=== PATIENT | male | born 2000 | race Caucasian/White ===

== ENCOUNTER 2023-08-16 14:45 | Emergency (ER) | payer OTHER ==
--- NOTE | 2023-08-16 15:05 | EDPHYS ---
Physician Documentation [facility] Name: Atif Miranda Age: 23 yrs Sex: Male : 2000 Arrival Date: 08/16/2023 Time: 14:45 Bed 12 Private MD: ED Physician Deidra Perez HPI: 08/16 14:52 This 23 yrs old Male presents to ER via Unassigned with complaints of Facial Injury. kb 14:52 Patient is a 23-year-old male who presents after getting hit in the face by a chair kb that fell off of a cart. Reports laceration and contusion under right eye. Denies LOC.. Historical: - Allergies: 14:54 No Known Allergies; cm10 - Home Meds: 14:54 None [Active]; cm10 - PMHx: 14:54 None; cm10 - PSHx: 14:54 None; cm10 - Immunization history:: Adult Immunizations unknown, Last tetanus immunization: unknown. - Social history:: Smoking status: Reported history of juuling and/or vaping. ROS: 14:53 Constitutional: Negative for fever, chills, and weight loss, kb 14:53 Skin: Positive for laceration(s), of the right cheek, 14:53 All other systems are negative, Exam: 14:53 Constitutional: This is a well developed, well nourished patient who is awake, alert, kb and in no acute distress. Eyes: Pupils equal round and reactive to light, extra-ocular motions intact. Lids and lashes normal. Conjunctiva and sclera are non-icteric and not injected. Cornea within normal limits. Periorbital areas with no swelling, redness, or edema. ENT: Moist Mucous membranes Respiratory: Respirations even and unlabored. No increased work of breathing. Talking in full sentences MS/ Extremity: Pulses equal, no cyanosis. Neurovascular intact. Full, normal range of motion. Neuro: Awake and alert, GCS 15, oriented to person, place, time, and situation. Moves all extremities. Normal gait. 14:53 Skin: injury, contusion(s), that are superficial, of the right cheek, laceration(s), the wound is approximately 1 cm(s), of the right cheek, that can be described as clean, no foreign body, linear, without bleeding, Vital Signs: 14:52 BP 129 / 77; Pulse 69; Resp 18; Temp 97.5; Pulse Ox 95% ; Weight 97.52 kg; Height 5 ft. cm10 4 in. ; Pain 1/10; 14:52 Body Mass Index 36.90 (97.52 kg, 162.56 cm) cm10 14:52 Pain Scale: Adult cm10 Harlan Coma Score: 14:54 Eye Response: spontaneous(4). Motor Response: obeys commands(6). Verbal Response: kb oriented(5). Total: 15. Laceration: 15:03 Wound Repair of 1cm ( 0.4in ) subcutaneous laceration to right cheek. Linear shaped.. kb Distal neuro/vascular/tendon intact. Wound prep: Extensive cleansing with hibiclenz by nurse, Wound irrigation with saline by nurse. Skin closed with thin layer Adhesive skin closure using Dermabond. Patient tolerated well. MDM: 14:50 Patient medically screened. kb 14:54 Differential diagnosis: Contusion of Hematoma on Laceration of face, Concussion without kb LOC. Data reviewed: vital signs, nurses notes. Test considered but Not performed: X-ray: X-ray facial bones considered but pain is very superficial, no bony tenderness, no entrapment of right eye. CT: CT head considered but patient has no neurodeficits, no LOC, no headache. Counseling: I had a detailed discussion with the patient and/or guardian regarding the historical points, exam findings, and any diagnostic results supporting the discharge/admit diagnosis, the need for outpatient follow up, a family practitioner, to return to the emergency department if symptoms worsen or persist or if there are any questions or concerns that arise at home. 08/16 14:52 Order name: Dermabond; Complete Time: 14:59 kb 08/16 14:52 Order name: Wound Care; Complete Time: 14:59 kb Administered Medications: 14:59 Drug: Tetanus-Diphtheria Toxoid IM Adult 0.5 ml IM once; Provide Vaccine Information mb9 Statement (VIS). {Flange Turner: [employer]; Exp: TueFeb 01 2025; Lot #: [id number]; Series: 1 of 1; Patient Consent: Obtained; Date/Time: ; Source Name: Atif Bustamante Ruben; Source Relationship: Self; Address Information: [address] [place] [address] [place] [address]; ; Education: Provided; VIS Presented Date: ; VIS Publication: Tetanus/Diphtheria (Td) Vaccine VIS 12/21/2016 (historic)} Route: IM; Site: right deltoid; Disposition Summary: 08/16/23 15:04 Discharge Ordered Notes: Location: Home kb Condition: Stable kb Diagnosis - Facial Laceration/ Laceration without foreign body of cheek and temporomandibular kb area - Contusion of right cheek kb Followup: kb - With: Emergency Department - When: As needed - Reason: Worsening of condition Followup: kb - With: Private Physician - When: 2 - 3 days - Reason: Recheck today's complaints, Continuance of care, Re-evaluation by your physician Discharge Instructions: - Discharge Summary Sheet kb - Contusion, [id number] kb - Facial Laceration, [id number] kb Forms: - Medication Reconciliation Form kb - Thank You Letter kb - Antibiotic Education kb - Prescription Opioid Use kb - Patient Portal Instructions kb - Leadership Thank You Letter kb Signatures: Shania Akbar FNP-C ABHISHEK-Patricia Lara RN RN mb9 Xiomara Muller RN RN cm10
--- NOTE | 2023-08-16 15:05 | ER ---
Nurse's Notes [facility] Name: Atif Miranda Age: 23 yrs Sex: Male : 2000 Arrival Date: 08/16/2023 Time: 14:45 Bed 12 Private MD: Diagnosis: Facial Laceration/ Laceration without foreign body of cheek and temporomandibular area;Contusion of right cheek Presentation: 08/16 14:52 Chief complaint: Patient states: was pushing a cart up a ramp and a metal chair hit his cm10 right eye. Pt noted to have small lac to right cheek. Coronavirus screen: Vaccine status: Patient reports being unvaccinated. Client denies travel out of the [place] in the last 14 days. Ebola Screen: Patient denies travel to an Ebola-affected area in the 21 days before illness onset. No symptoms or risks identified at this time. Initial Sepsis Screen: Does the patient meet any 2 criteria? No. Patient's initial sepsis screen is negative. Does the patient have a suspected source of infection? No. Patient's initial sepsis screen is negative. Risk Assessment: Do you want to hurt yourself or someone else? Patient reports no desire to harm self or others. Onset of symptoms was August 16, 2023. 14:52 Method Of Arrival: Ambulatory cm10 14:52 Acuity: FRANK 4 cm10 Historical: - Allergies: 14:54 No Known Allergies; cm10 - Home Meds: 14:54 None [Active]; cm10 - PMHx: 14:54 None; cm10 - PSHx: 14:54 None; cm10 Historical Immunization: - Administered Vaccines 14:59 Tetanus-Diphtheria Toxoid IM Adult 0.5 ml mb9 [employer]: [employer]; Exp: TueFeb 01 2025; Lot #: [id number]; Series: 1 of 1; Patient Consent: Obtained; Date/Time: ; Source Name: Atif Miranda; Source Relationship: Self; Address Information: [address] [place] [address]; ; Education: Provided; VIS Presented Date: ; VIS Publication: Tetanus/Diphtheria (Td) Vaccine VIS 12/21/2016 (historic) - Immunization history:: Adult Immunizations unknown, Last tetanus immunization: unknown. - Social history:: Smoking status: Reported history of juuling and/or vaping. Screenin:00 [facility] ED Fall Risk Assessment (Adult) History of falling in the last 3 months, mb9 including since admission No falls in past 3 months (0 pts) Confusion or Disorientation No (0 pts) Intoxicated or Sedated No (0 pts) Impaired Gait No (0 pts) Mobility Assist Device Used No (0 pt) Altered Elimination No (0 pt) Score/Fall Risk Level 0 - 2 = Low Risk Oriented to surroundings, Maintained a safe environment, Educated pt \T\ family on fall prevention, incl call for assistance when getting out of bed. Abuse screen: Denies threats or abuse. Nutritional screening: No deficits noted. Tuberculosis screening: No symptoms or risk factors identified. Assessment: 14:58 General: Appears in no apparent distress. Behavior is calm, cooperative, appropriate mb9 for age. Pain: Denies pain. Neuro: Faustin Agitation-Sedation Scale (RASS): 0 - Alert and Calm Level of Consciousness is awake, alert, obeys commands, Oriented to person, place, time, situation, Appropriate for age. Cardiovascular: Patient's skin is warm and dry. Respiratory: Airway is patent Respiratory effort is even, unlabored, Respiratory pattern is regular, symmetrical. GI: No signs and/or symptoms were reported involving the gastrointestinal system. : No signs and/or symptoms were reported regarding the genitourinary system. EENT: No signs and/or symptoms were reported regarding the EENT system. Derm: Bruising that is dark purple, right cheek . Musculoskeletal: Range of motion: intact in all extremities. Injury Description: Laceration sustained to right cheek is clean, superficial, not bleeding. Vital Signs: 14:52 BP 129 / 77; Pulse 69; Resp 18; Temp 97.5; Pulse Ox 95% ; Weight 97.52 kg; Height 5 ft. cm10 4 in. ; Pain 1/10; 14:52 Body Mass Index 36.90 (97.52 kg, 162.56 cm) cm10 14:52 Pain Scale: Adult cm10 Harlan Coma Score: 14:54 Eye Response: spontaneous(4). Motor Response: obeys commands(6). Verbal Response: kb oriented(5). Total: 15. ED Course: 14:48 Patient arrived in ED. rg4 14:50 [facility] Akbar [facility]C [facility] kb 14:50 Deidra Perez MD is Attending Physician. kb 14:54 Triage completed. cm10 14:54 Arm band placed on Patient placed in an exam room, on a stretcher. cm10 14:58 Patricia Chavez, RN is Primary Nurse. mb9 15:00 Bed in low position. Call light in reach. Side rails up X 1. Client placed on mb9 continuous cardiac and pulse oximetry monitoring. NIBP monitoring applied. 15:00 No provider procedures requiring assistance completed. Patient did not have IV access mb9 during this emergency room visit. Administered Medications: 14:59 Drug: Tetanus-Diphtheria Toxoid IM Adult 0.5 ml IM once; Provide Vaccine Information mb9 Statement (VIS). {[employer]: [employer]; Exp: TueFeb 01 2025; Lot #: [id number]; Series: ; Patient Consent: Obtained; Date/Time: ; Source Name: Atif Miranda; Source Relationship: Self; Address Information: [address] [place] [address]; ; Education: Provided; VIS Presented Date: ; VIS Publication: Tetanus/Diphtheria (Td) Vaccine VIS 12/21/2016 (historic)} Route: IM; Site: right deltoid; Medication: 15:01 VIS not applicable for this client. mb9 Outcome: 15:04 Discharge ordered by . kb 15:08 Discharged to home ambulatory, with family, mb9 15:08 Condition: stable 15:08 Discharge instructions given to patient, family, Instructed on discharge instructions, follow up and referral plans. Demonstrated understanding of instructions, follow-up care, 15:08 Patient left the ED. mb9 Signatures: Shania Akbar FNP-C FNP-Ольга Aviles rg4 Patricia Chavez, RN RN mb9 Xiomara Muller RN RN cm10
[2023-08-16] MEDS ORDERED: DERMABOND SKIN ADHESIVE TOP ONE (15:07)
[2023-08-16] MEDS ORDERED: TDAP (DIPHTH,PERTUSS(ACELL),TET VAC) 0.5 ML VIAL IMVAC ONE (15:08)
[2023-08-16 15:13] VITALS: BP 129/77; TEMP 97.5; O2SAT 95
--- OUTSIDE RECORDS SUMMARY | 2023-08-16 15:23 | XMS REPORT | Continuity of Care Document ---
:2000 Author Organization [facility] t Address [address] [facility] [address] [place] [address] Care Team Providers Name Role Phone Asked, No Pcp Primary Care Physician Unavailable GENE_Nini Attending Clinician Unavailable Rita Singleton Attending Clinician [phone] PRERNA SMITH Attending Clinician Unavailable MD SLIM MELGAR Attending Clinician Unavailable KOLE HERNADEZ M.D. Attending Clinician Unavailable AZALEA GASCA RD Attending Clinician Unavailable PRIYANK Admitting Clinician Unavailable SLIM MELGAR Admitting Clinician Unavailable MD SLIM MELGAR Admitting Clinician Unavailable Payers Payer Name Policy Type Policy Number Effective Date Expiration Date Fady desir CARI [id number] 2015 00:00:00 [facility] [id number] 2022 (PPO) 00:00:00 Problems Condition Condition Condition Status Onset Resolution Last Treating Co mments Source Name Details Category Date Date Treatment Clinician Date Attention Attention Problem Active Swe rabia deficit Deficit 2-28 Communi hyperactiv Hyperactiv 00:00: ty ity ity 00 Hospita disorder Disorder l Clinics Impacted Impacted Problem Active [place] cerumen of Cerumen of 2-28 Co mmuni bilateral Bilateral 00:00: ty ears Ears 00 Hospita l Clinics History of History of Problem Active S weeny cholecyste Cholecyste 1-20 Co mmuni ctomy [facility]00[facility] Elevated Elevated Problem Active [place] liver Liver 1-20 Communi enzymes Enzymes 00:00: ty level Level 00 [facility] Gallstone Gallstone Disease Active [facility] pancreatit pancreatit 1 [facility] is is 00:00: Hospita 00 l Malaise Malaise Problem Active 2020-09 [place] 0-05 [facility] Acute Acute Problem Active 2018-09 [place] sinusitis Sinusitis 2-23 Comm uni [facility]00: ty [facility] Acute Acute Problem Active [place] upper Upper 1-17 Communi respirator Respirator 00:00: ty y [facility] Seasonal Seasonal Problem Active [place] allergic Allergic -17 Commun i rhinitis Rhinitis 00:00: ty [facility] FALL FROM FALL FROM Diagnosis Active 2012-11-07 Memoria HORSE HORSE 10-01 13:25:00 l Active 00:00: Dereje 10/01/2012 00 [facility] LIFEFLIGHT LIFEFLIGH Diagnosis Active 2012-10-01 Memoria T Active 10-01 14:44:00 l 10/01/2012 00:00: Won abreu [address] Nausea Nausea Problem Active [facility] Attention Attention Problem Resolve 2012-10-03 Memoria deficit deficit d 16:38:15 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, disorder, combined combined type type Resolved Problem 10/03/2012 [facility] Allergies, Adverse Reactions, Alerts Allergy Allergy Status Severity Reaction(s) Onset Inactive Treating Comm ents Source Name Type Date Date Clinician CEFZIL Allergy Active [place] to Communi substanc ty e Hospita l Clinics Social History Social Habit Start Date Stop Date Quantity Comments Source Sexual orientation [facility] Alcohol intake 2021-09-24 2021-09-24 Current drinker of Dc thodist 00:00:00 00:00:00 alcohol (finding) Hospita History of Social 2021-09-24 2021-09-[address] function 00:00:00 00:00:00 Hospital Tobacco use and 2021-09-20 2021-09-20 Smokeless tobacco Me thodist exposure 00:00:00 00:00:00 non-user Hospital Alcohol Comment 2021-09-20 2021-09-[address] 00:00:00 00:00:00 Hospital Sex Assigned At [birth year] Muslim 00:00:00 00:00:00 Hospital Smoking Status Start Date Stop Date Source Never smoked tobacco [facility] Medications Ordered Filled Start Stop Current Ordering Indication Dosage Frequency Signature Comments Components Source Medication Medication Date Date Medication? Clinician (SIG) Name Name pantoprazol Yes 40mg QD Take 40 mg Methodi e 1-[address] (PROTONIX) 11:23: daily. Hospi ta 40 MG EC 02 l tablet sertraline Yes 50mg QD Take 50 mg M ethodi (ZOLOFT) 50 -[address] MG tablet 11:23: daily. Hospit a 02 l calcium Yes Take by Methodi carbonate 1-[address] (TUMS ORAL) 11:23: needed. Hos dinesh 02 l mag Yes Take by Methodi hydrox/alum -[address] inum 11:23: needed. Hospita hyd/simeth 02 l (MYLANTA ORAL) Ondansetron Ondansetron 2018-09 Yes KOLE 1 Q8H TAKE 1 UT 8 MG Oral 8 MG Oral 0-02 HERNADEZ TABLET P hysici Tablet Tablet 00:00: M.D. EVERY 8 ans Disintegrat Disintegrat 00 HOURS PRN ing ing nausea and vomiting Zofran ODT Yes Lary 4 mg, 1 Me moria 4 mg oral 1-20 Judy tab, PO, l tablet, 21:53: Maisha ONCE, Won n disintegrat 26 Dissolve ing tab under tongue, 3 tab, Substituti on AllowedDis solve tab under tongue fentanyl No Lary 50 Memoria 1-20 Judy microgram, l 21:24: Maisha Route: [place] 00 IVP, ONCE, Dosing Weight 90.909, kg, Priority: STAT, Start date: 10/01/12 15:24:00, Stop date: 10/01/12 15:24:00 Adderall Yes unknown, Memor ia 1-20 Substituti l 21:20: on Allowed 18 morphine 2012-0 No Lary 6 mg, Memori a Sulfate 1-20 Judy Route: l 20:36: Maisha IVP, Drug Angelica nn form: INJ, ONCE, Dosing Weight 90.909, kg, Priority: STAT, Start date: 10/01/12 14:36:00, Stop date: 10/01/12 14:36:00 morphine 2012-0 No Lary 4 mg, 1 Mello guido Sulfate 1-20 Judy mL, Route: l 19:23: Maisha IVP, Drug Angelica nn form: INJ, ONCE, Dosing Weight 90.909, kg, Priority: STAT, Start date: 10/01/12 13:23:00, Stop date: 10/01/12 13:23:00 Saline 2012-0 No Lary 5 mL, Memoria Flush 0.9% 1-20 Judy Route: l 19:05: Maisha IVP, Drug Angelica nn Form: INJ, kg, PRN, PRN Line Flush, Start date: 10/01/12 13:05:00, Duration: 30 day, Stop date: 10/31/12 13:04:00 Visipaque 2012-0 No Dalton G 140 mL, Memoria 320mg/ml 1-20 Alejandro Route: l 19:04: IVP, Drug Dereje Form: SOLN, kg, ONCALL, STAT, Start date: 10/01/12 13:04:00, Duration: 1 doses or times, Dose = 2.2ml/kg, Max dose = 150ml -- "To be infused by Radiology Staff ONLY"Dose = 2.2ml/kg, Max dose = 150ml -- "To be infused by Radiology Staff ONLY" Paxil 10 mg Paxil 10 mg No 1 Q1D Paxil 10 [place] tablet Take tablet Take mg tablet Communi 1 tablet 1 tablet Take 1 ty every day every day tablet Hos dinesh by oral by oral every day l route. route. by oral Clinics route. clindamycin clindamycin No clindamyci [place] HCl 300 mg HCl 300 mg n HCl 300 Communi capsule capsule mg capsule ty Hospita l Clinics paroxetine paroxetine No paroxetine [place] 10 mg 10 mg 10 mg Communi tablet Take tablet Take tablet ty 1 tablet 1 tablet Take 1 Hospi ta every day every day tablet l by oral by oral every day Clin ics route. route. by oral route. pantoprazol pantoprazol No pantoprazo [place] e 40 mg e 40 mg le 40 mg Commu ni tablet,jennifer tablet,jennifer tablet,del ty yed release yed release ayed H ospita release l Clinics sertraline sertraline No 1 Q1D sertraline [place] 50 mg 50 mg 50 mg Communi tablet Take tablet Take tablet ty 1 tablet 1 tablet Take 1 Hospi ta every day every day tablet l by oral by oral every day Clin ics route for route for by oral 90 days. 90 days. route for 90 days. Strattera Strattera No 1capsul Q1D Strattera [place] 25 mg 25 mg e(s) 25 mg Communi capsule capsule capsule ty Take 1 Take 1 Take 1 Hospita capsule capsule capsule l every day every day every day Clinics by oral by oral by oral route in route in route in the the the morning. morning. morning. pantoprazol pantoprazol No 1 Q1D pantoprazo [place] e 40 mg e 40 mg le 40 mg Commu ni tablet,jennifer tablet,jennifer tablet,del ty yed release yed release ayed H ospita Take 1 Take 1 release l tablet tablet Take 1 Clinics every day every day tablet by oral by oral every day route. route. by oral route. sertraline sertraline No 1 Q1D sertraline [place] 50 mg 50 mg 50 mg Communi tablet Take tablet Take tablet ty 1 tablet 1 tablet Take 1 Hospi ta every day every day tablet l by oral by oral every day Clin ics route for route for by oral 90 days. 90 days. route for 90 days. Vital Signs Vital Name Observation Time Observation Value Comments Source BP Diastolic 2022-11-09 64 mm[Hg] [place] [employer] [facility] 00:[facility]: Hospital Clinic s BP Systolic 2022-11-09 119 mm[Hg] [facility] Body Weight 2022-11-09 3776 [facility] BP Diastolic 2021-10-01 80 mm[Hg] [facility] s BP Systolic 2021-10-01 130 mm[Hg] [place] [facility] 00:[facility]:00 Hospital Clinic s Body Weight 2021-10-01 3996.8 [oz_av] [place] [facility] 00:00:00 Hospital Clinic s BP Diastolic 2021-06-16 84 mm[Hg] [place] [facility] 00:00:00 Hospital Clinic s BP Systolic 2021-06-16 128 mm[Hg] [place] [facility] 00:00:00 Hospital Clinic s Body Weight 2021-06-16 4384 [oz_av] [place] [facility] 00:00:00 Hospital Clinic s BP Systolic 2019-06-06 140 mm[Hg] Location: LUE; [facility] 10:40:00 Position: Sitting BP Diastolic 2019-06-06 98 mm[Hg] Location: YUMIKOE; [facility] 10:40:00 Position: Sitting Height 2019-06-06 67 [in_us] [facility] 10:40:00 Weight 2019-06-06 301.375 [lb_av] [facility] 10:40:00 Body Mass Index 2019-06-06 47.2 kg/m2 [facility] Calculated 10:40:00 Temperature 2019-06-06 97.4 [degF] Method: Oral [facility] 10:40:00 Heart Rate 2019-06-06 92 /min [facility] 10:40:00 Height 2012-10-01 152.40 [facility] 18:[facility]00 Weight 2012-10-01 [facility] n 18:49:00 Procedures Procedure Date / Time Performing Clinician Source Performed Cholecystectomy 2021-09-21 00:00:00 [facility] Laparoscopic Sleeve [facility] Gastrectomy [facility] Clinics Plan of Care Planned Activity Planned Date Details Comments Source Future Scheduled Test 2023-08-14 COVID-19 VACCINE [facility] 04:56:20 (#1) [code = COVID-19 VACCINE (#1)] Future Scheduled Test 2023-08-14 Hepatitis C Method [facility] 04:56:20 screening (procedure) [code = 325624094] Future Scheduled Test 2023-08-14 INFLUENZA VACCINE [facility] 04:56:20 (#1) [code = INFLUENZA VACCINE (#1)] Diagnostic Test 2021-10-01 CMP, serum or [place] Comm unity Pending 00:00:00 plasma [code = CMP, Hospital Clinics serum or plasma] Encounters Start End Encounter Admission Attending Care Care Encounter Source Date/Time Date/Time Type Type Clinicians Facility Department ID 2022-11-09 2022-11-09 Outpatient KEFFER_A [facility] [id number] [place] 00:00:00 00:00:00 228 [facility] i [facility] Clinics 2022-11-09 2022-11-09 Outpatient KEFFER_A [facility] [id number] [place] 00:00:00 00:00:00 301 Commun i ty Hospita l Clinics 2022-11-09 2022-11-09 Rita Daniel [facility] [place] 228 [place] 00:00:00 00:00:00 Angela Singleton MD: [address] [facility] [address], HOSPITAL Clinic s [place], [place] CLINIC, [address] GENE , Ph. 2022-02-12 2022-02-12 Outpatient KEFFER_A [facility] [id number] [place] 05:21:00 05:21:00 603 Commun i ty Hospita l Clinics 2022-01-08 2022-01-08 Outpatient KEFFER_A [facility] [id number] [place] 01:59:00 01:59:00 429 Commun i ty Hospita l Clinics 2021-12-04 2021-12-04 Outpatient KEFFER_A [facility] [id number] [place] 02:40:00 02:40:00 325 Commun i ty Hospita l Clinics 2021-10-01 2021-10-01 Outpatient KESARAH_A [facility] [id number] [place] 05:00:00 05:00:00 120 Commun i ty Hospita l Clinics 2021-10-01 2021-10-01 Rita Daniel [facility] [place] 120 [place] 00:00:00 00:00:00 Angela Singleton MD: [address] [facility] Hospit a [address], COMMUNITY [address], HOSPITAL [facility], [address] GENE , Ph. 2021-10-01 2021-10-01 Outpatient Rita Singleton [facility] [id number] 00:00:00 00:00:00 María [id number] 2021-09-20 2021-09-24 [facility] [id number] [place] [address] 00:00:00 00:00:[address] YAMUNA [address] 2021-08-11 2021-08-11 Outpatient GENE_Nini [facility] [id number] [place] 04:55:00 04:55:00 130 Commun i ty Hospita l Clinics 2021-08-11 2021-08-11 Rita Daniel [facility] [place] 130 [place] 00:00:00 00:00:00 Angela Singleton MD: [address] [facility] Hospit a [address], COMMUNITY l [address], HOSPITAL [place], [place] CLINIC, [address] GENE , Ph. 2021-08-11 2021-08-11 Outpatient Rita Singleton [facility] [id number] 00:00:00 00:00:00 María [id number] 2021-06-16 2021-06-16 Outpatient GENE_Nini [facility] [id number] [place] 12:45:00 12:45:00 005 Commun i ty Hospita l Clinics 2021-06-16 2021-06-16 Outpatient Rita Singleton [facility] [id number] 00:00:00 00:00:00 María [id number] 2021-06-16 2021-06-16 Rita Daniel [facility] [place] 005 [place] 00:00:00 00:00:00 Angela Singleton MD: [address] [facility] Hospit a [address], COMMUNITY [address], HOSPITAL [facility], [place] CLINIC, [address] GENE , Ph. 2019-06-06 2019-06-06 Appointmen ADELINE HERNADEZ Multispecia [id number] [place] 10:00:00 10:00:00 t; KOLE HERNADEZ M.D. lt - Ayad Buiaire ans 2019-05-09 2019-05-09 Appointmen SATYA, [facility] [id number] [place] 10:00:00 10:00:00 t; KOLE HERNADEZ M.D. Physici BRAD, M.D. ans 2019-04-04 2019-04-04 [facility], ADELINE [facility] [id number] [place] 10:00:00 10:00:00 t; KOLE HERNADEZ M.D. Physici BRAD, M.D. ans 2019-03-21 2019-03-21 Appointmen SATYA, [facility] UTP [id number] [place] 11:30:00 11:30:00 t; KOLE HERNADEZ M.D. Physici BRAD, M.D. ans 2019-02-21 2019-02-21 Appointmen ADELINE HERNADEZ UTP [id number] [place] 11:15:00 11:15:00 t; KOLE HERNADEZ M.D. Physici BRAD, M.D. ans 2019-01-17 2019-01-17 Appointmen ADELINE HERNADEZ UTP [id number] [place] 11:00:00 11:00:00 t; KOLE HERNADEZ M.D. Physici BRAD, M.D. ans 2019-01-12 2019-01-12 [facility] [place] [facility] UTP [id number] [place] 12:30:00 12:30:00 t; AZALEA Abreu Phys ici [address] ans AZALEA ZAMAN RD 2019-01-05 2019-01-05 Appointmen SATYA, [facility] UTP [id number] [place] 10:00:00 10:00:00 t; KOLE HERNADEZ M.D. Physici BRAD, M.D. ans 2018-12-20 2018-12-20 Appointmen HERNADEZADELINE [facility] [id number] [place] 09:30:00 09:30:00 KOLE Benavides M.D. Physici BRAD, M.D. ans 2012-10-01 2012-10-01 Emergency nullFlavo [facility] [id number] Memoria 12:38:00 16:03:00 r Medical 67 l [facility] 2012-10-01 2012-10-01 AA nullFlavo [facility] [id number] Memoria 12:38:00 12:38:00 r Medical 70 l [facility] Results Test Description Test Time Test Comments Results Result Comments Source CBC W Auto Differential panel - Blood 2021-09-30 00:00:00 Test Item Value Reference Range Interpretation Comme nts Leukocytes [#/volume] in Blood by Automated count (test 4.7 x10e3/u L 3.4-10.8 code = 6690-2) Erythrocytes [#/volume] in Blood by Automated count 4.89 x10e6/uL 4 .14-5.80 (test code = 789-8) Hemoglobin [Mass/volume] in Blood (test code = 718-7) 14.8 g/dL 13.0-17.7 Hematocrit [Volume Fraction] of Blood by Automated count 43.3 % 37.5-51.0 (test code = 4544-3) Erythrocyte mean corpuscular volume [Entitic volume] by 89 fL 79-97 Automated count (test code = 787-2) Erythrocyte mean corpuscular hemoglobin [Entitic mass] 30.3 pg 26.6-33.0 by Automated count (test code = 785-6) Erythrocyte mean corpuscular hemoglobin concentration 34.2 g/dL 31.5-35.7 [Mass/volume] by Automated count (test code = 786-4) Erythrocyte distribution width [Ratio] by Automated 12.4 % 11 .6-15.4 count (test code = 788-0) Platelets [#/volume] in Blood by Automated count (test 261 x10e3/uL 150-450 code = 777-3) Neutrophils/100 leukocytes in Blood by Automated count 64 % not estab. (test code = 770-8) Lymphocytes/100 leukocytes in Blood by Automated count 15 % not estab. (test code = 736-9) Monocytes/100 leukocytes in Blood by Automated count 17 % n ot estab. (test code = 5905-5) Eosinophils/100 leukocytes in Blood by Automated count 2 % not estab. (test code = 713-8) Basophils/100 leukocytes in Blood by Automated count 1 % n ot estab. (test code = 706-2) immature cells (test code = immature cells) configuration developer Neutrophils [#/volume] in Blood by Automated count (test 3.0 x10e3/ uL 1.4-7.0 code = 751-8) Lymphocytes [#/volume] in Blood by Automated count (test 0.7 x10e3/ uL 0.7-3.1 code = 731-0) Monocytes [#/volume] in Blood by Automated count (test 0.8 x10e3/uL 0.1-0.9 code = 742-7) Eosinophils [#/volume] in Blood by Automated count (test 0.1 x10e3/ uL 0.0-0.4 code = 711-2) Basophils [#/volume] in Blood by Automated count (test 0.0 x10e3/uL 0.0-0.2 code = 704-7) Immature granulocytes/100 leukocytes in Blood by 1 % not e stab. Automated count (test code = 64798-6) Immature granulocytes [#/volume] in Blood by Automated 0.0 x10e3/uL 0.0-0.1 count (test code = 25146-1) Nucleated erythrocytes/100 leukocytes [Ratio] in Blood configuration developer by Automated count (test code = 60533-6) Morphology [Interpretation] in Blood Narrative (test configuration developer code = 62219-7) [facility] - Serum or [id number] 00:00:00 Test Item Value Reference Range Interpretation Comments Glucose [Mass/volume] in 82 mg/dL 65-99 Serum or Plasma (test code = 2345-7) Urea nitrogen [Mass/volume] 11 mg/dL 6-20 in Serum or Plasma (test code = 3094-0) Creatinine [Mass/volume] in 0.86 mg/dL 0.76-1.27 Serum or Plasma (test code = 2160-0) Glomerular filtration 122 mL/min/1.73 >59 rate/1.73 sq M.predicted among non-blacks [Volume Rate/Area] in Serum, Plasma or Blood by Creatinine-based formula (CKD-EPI) (test code = 00434-5) Glomerular filtration 141 mL/min/1.73 >59 rate/1.73 sq M.predicted among blacks [Volume Rate/Area] in Serum, Plasma or Blood by Creatinine-based formula (CKD-EPI) (test code = 53829-1) Urea nitrogen/Creatinine 13 9-20 [Mass Ratio] in Serum or Plasma (test code = 3097-3) Sodium [Moles/volume] in 140 mmol/L 134-144 Serum or Plasma (test code = 2951-2) Potassium [Moles/volume] in 4.9 mmol/L 3.5-5.2 Serum or Plasma (test code = 2823-3) Chloride [Moles/volume] in 101 mmol/L 96-106 Serum or Plasma (test code = 2075-0) Carbon dioxide, total 23 mmol/L 20-29 [Moles/volume] in Serum or Plasma (test code = 2027-) Calcium [Mass/volume] in 9.5 mg/dL 8.7-10.2 Serum or Plasma (test code = 15993-4) Protein [Mass/volume] in 7.4 g/dL 6.0-8.5 Serum or Plasma (test code = 2885-2) Albumin [Mass/volume] in 4.6 g/dL 4.1-5.2 Serum or Plasma (test code = 1751-7) Globulin [Mass/volume] in 2.8 g/dL 1.5-4.5 Serum by calculation (test code = 41757-9) Albumin/Globulin [Mass Ratio] 1.6 1.2-2.2 in Serum or Plasma (test code = 1759-0) Bilirubin.total [Mass/volume] 1.5 mg/dL 0.0-1.2 H in Serum or Plasma (test code = 1974-) Alkaline phosphatase 130 IU/L 44-121 H [Enzymatic activity/volume] in Serum or Plasma (test code = 6768-6) Aspartate aminotransferase 55 IU/L 0-40 H [Enzymatic activity/volume] in Serum or Plasma (test code = 1920-8) Alanine aminotransferase 144 IU/L 0-44 H [Enzymatic activity/volume] in Serum or Plasma (test code = 1742-6) [facility] triacylglycer[facility] lipase panel - Serum or [id number] 00:00:00 Test Item Value Reference Range Interpretation Comments Amylase [Enzymatic activity/volume] 58 U/L 31-110 in Serum or Plasma (test code = 1798-8) Lipase [Enzymatic activity/volume] in 172 U/L 13-78 H Serum or Plasma (test code = 3040-3) [facility] ([facility]OVID-[facility]) RNA [Presence] in Respiratory specimen by AWAIS with probe [id number] 19:46:47 Test Item Value Reference Range Interpretation Comments SARS-CoV-2 (COVID-19) RNA Not detected Not-Detected [Presence] in Respiratory specimen by AWAIS with probe detection (test code = 60267-8) Whether patient is employed in a healthcare setting (test code = 45288-3) Whether the patient has symptoms related to condition of interest (test code = 19890-4) Patient was hospitalized because of this condition (test code = 36251-3) Whether the patient was admitted to intensive care unit (ICU) for condition of interest (test code = 77424-8) Whether patient resides in a congregate care setting (test code = 93047-8) [facility]] CBC (INCLUDES DIFF/PLT)2019-06-06 11:20:01 Test Item Value Reference Range Interpretation Comments WBC (test code = 6690-2) 4.5 {K/CMM} 3.7-10.4 RBC (test code = 789-8) 4.76 {M/CMM} 4.70-6.10 Hgb (test code = 718-7) 14.5 g/dl 14.0-18.0 Hct (test code = 50308-1) 42.4 % 42.0-54.0 MCV (test code = 787-2) 89.2 fL 80.0-94.0 MCH (test code = 785-6) 30.6 pg 27.0-31.0 MCHC (test code = 786-4) 34.3 g/dl 32.0-36.0 RDW (test code = 788-0) 13.3 % 11.5-14.5 Platelet (test code = 56743-9) 222 {K/CMM} 133-450 Mean Platelet Volume (test code 10.2 fL 7.4-10.4 = 53270-3) [facility][QL] [id number] 11:20:01 Test Item Value Reference Range Interpretation Comments Segmented Neutrophils (test code 66.5 % 45.0-75.0 = 62247-4) Monocytes (test code = 53819-4) 8.5 % 2.0-12.0 Lymphocytes (test code = 41623-9) 23.4 % 20.0-40.0 Eosinophils (test code = 34435-3) 1.1 % 0.0-4.0 Basophils (test code = 706-2) 0.5 % 0.0-1.0 Segs-Bands # (test code = 3.0 {K/CMM} 1.5-8.1 50573-1) Lymphocytes # (test code = 1.1 {K/CMM} 1.0-5.5 55588-7) Monocytes # (test code = 24508-9) 0.4 {K/CMM} 0.0-0.8 [facility]] PTH, INTACT (WITHOUT CALCIUM)2019-06-06 11:20:01 Test Item Value Reference Range Interpretation Comments Parathyroid Hormone Intact (test 30.4 pg/ml 18.4-80.1 code = 2731-8) [facility][QL] CMP [id number] 11:20:01 Test Item Value Reference Range Interpretation Comments Sodium Level 143 {mEq/l} 135-145 (test code = 2951-2) Potassium Level 4.4 {mEq/l} 3.5-5.1 (test code = 2823-3) Chloride Level 107 {mEq/l} 95-109 (test code = 2075-0) Carbon Dioxide; 23 {mEq/l} 24-32 Below Low Threshold (test code = 8-9) AGAP (test code = 17.4 {mEq/l} 10.0-20.0 89442-0) Glucose Lvl; 63 mg/dl 70-99 Adult reference range Below Low values reflect the Threshold (test clinical cl delinesof the code = 2345-7) [place] [employer]. Creatinine Lvl 0.90 mg/dl 0.50-1.40 (test code = 2160-0) Blood Urea 6 mg/dl 7-22 Nitrogen; Below Low Threshold (test code = 3094-0) BUN/Creatinine 7 6-25 Ratio (test code = 3097-3) Total Protein 6.7 g/dl 6.4-8.4 (test code = 2885-2) Albumin Lvl (test 4.4 g/dl 3.5-5.0 code = 1751-7) Globulin; Below 2.3 g/dl 2.7-4.2 Low Threshold (test code = 61806-3) A/G Ratio; Above 1.9 0.7-1.6 High Threshold (test code = 1759-0) Calcium Level 9.8 mg/dl 8.5-10.5 Total (test code = 37430-7) ALT (test code = 28 u/l 0-65 1743-4) AST (test code = 16 u/l 0-37 38201-8) Alk Phos (test 45 u/l 39-136 The pediatric reference code = 1783-0) ranges for th is test represent a CLSI-basedtrans ference of the CALIPER shanda abase of pediatric refer ence intervals to th e[employer] [place] analyzer (Clinical Biochemistry 46 (2013): 4068-6010). [facility] MyPrep[employer] [facility] has not internally validated these reference ranges and therefore they should be used only in th e context of a thoroughcl inical assessment. Bili Total (test 0.6 mg/dl 0.2-1.3 code = 1975-2) eGFR (test code = 123 The eGFR i s calculated 08358-2) {ML/MIN/1.7} using the CKD-E PI formula. In mos t young, healthyindividu als the eGFR will be >9 0 mL/min/1.73m2. The eGFR declines with a ge. AneGFR of 60-89 may be normal in some population s, particularly th e elderly, forwhom the CKD -EPI formula has not been extensively milly idated. Use of the eGFR isnot recommended in the following populations:Ind ividuals with unstable c reatinine concentrations, including patient s and those with seri ous co-morbid conditions.Asuncion ents with extremes in mus [place] mass or diet.The shanda a above are obtained fr om the National Kidney Disease Education Progr am(NKDEP) which zi lozano recommends that when the eGFR is used in patientswith ex tremes of body mass index for purposes of daniele g dosing, the eGFR should be multiplied by t he estimated BMI. [facility][QL] FOLATE, [id number] 11:20:01 Test Item Value Reference Range Interpretation Comments Folate Level (test code = 2284-8) 16.2 ng/ml >=3.0 [facility][QL] IRON AND TOTAL IRON BINDING [id number] 11:20:01 Test Item Value Reference Range Interpretation Comments Iron (test code = 2498-4) 67 ug/dL 45-160 % [place] (test code = 2502-3) 13 % 12-57 TIBC; Above High Threshold (test 524 ug/dL 228-428 code = 2500-7) UIBC (test code = UIBC) 457 ug/dL 110-370 [facility][QL] LIPID [id number] 11:20:01 Test Item Value Reference Range Interpretation Comments Chol (test code = 2093-3) 193 mg/dl <=199 Trig; Above High Threshold (test 150 mg/dl <=149 code = 2571-8) HDL Cholesterol; Below Low 25 mg/dl >=61 Threshold (test code = 2085-9) CHD Risk; Above High Threshold 7.72 4.00-7.30 (test code = 02894-0) LDL; Above High Threshold (test 138 mg/dl <=99 code = 98843-5) VLDL (test code = VLDL) 30 [facility][QL] VITAMIN [id number] 11:20:01 Test Item Value Reference Range Interpretation Comments Vitamin B12 Level; Above High 1504 pg/ml 254-1320 Threshold (test code = 2132-9) [facility][QL] TSH, 3RD GENERATION W/REFLEX TO [id number] 11:20:01 Test Item Value Reference Range Interpretation Comments TSH (test code = 09204-6) 1.770 {uIU/ml} 0.360-3.740 [facility][QL] HEMOGLOBIN [id number] 11:20:01 Test Item Value Reference Range Interpretation Comments Hemoglobin A1c (test code = 4548-4) 4.6 % <=5.6 [facility][QLH] VITAMIN D, 25-HYDROXY, LC/MS/[id number] 11:20:01 Test Item Value Reference Range Interpretation Comments Vitamin D, 25-OH, 14.2 ng/ml 30.0-100.0 Reference range is based Total (test code on recommen dations in the = Vitamin D, EndocrineSociet y Clinical 25-OH, Total) Practice Guide line (J Clin Endocrinol [place]od3192;96:19 11-1930) [facility][H] Vitamin E [id number] 11:20:01 Test Item Value Reference Range Interpretation Comments Alpha-Tocoph 9.9 mg/L 5.9-19.4 This test was d eveloped and its eusebio (test performance code = characteristics determined by [facility]. It has not been cleared eusebio) orapproved by [facility] Food and Drug Administration. Gamma-Tocoph 1.9 mg/L 0.7-4.9 This test was d eveloped and its eusebio (test performance code = characteristics determined by [facility]Toc[facility]. It has not been cleared eusebio) orapproved by [facility] Food and Drug Administration. Reference intervals for a lpha and gamma-tocophero ldetermined from National Health and Nutrition ExaminationSurv , 9297-1372. Individuals wit h alpha-tocopherol levelsless than 5.0 mg/L are considered cristóbal min E deficient.Perfo rmed At: [facility] [address] [place], [place] [id number] Fabian MD Ph:[phone] [facility][H] Vit [id number] 11:20:01 Test Item Value Reference Range Interpretation Comments Vitamin A 26.5 ug/dL 18.9-57.3 Reference inter vals for vitamin Level (test A determined fr om code = LabCorpinternal studies. Vitamin A Individuals wit h vitamin A less Level) than 20ug/dL ar e considered vitamin A defic ient and those withserum wong ntrations less than 10 ug/dL a re consideredsever joel deficient.This test was developed and i ts performance characteristics determined by [facility]. It has not been cleared orappro elia by the Food and Drug Administration. Performed At: [facility] [address] [place], [place] [id number] ra Rui TIDWELL Ph:[phone] [facility]] VITAMIN B1, WHOLE [id number] 11:20:01 Test Item Value Reference Range Interpretation Comments Vitamin B1 74.9 nmol/L 66.5-200.0 This test was d eveloped and its Level (test performance code = characteristics determined by Vitamin B1 [facility]. It has not been Level) cleared orappro elia by the Food and Drug Administration. Performed At: [facility] [address] [place], [place] [id number] ra Rui TIDWELL Ph:[phone] [facility]] CMP [id number] 10:43:01 Test Item Value Reference Range Interpretation Comments Sodium Level 140 {mEq/l} 135-145 (test code = 2951-2) Potassium Level 3.9 {mEq/l} 3.5-5.1 (test code = 2823-3) Chloride Level 107 {mEq/l} 95-109 (test code = 5-0) Carbon Dioxide 26 {mEq/l} 24-32 (test code = 2027-9) AGAP (test code = 10.9 {mEq/l} 10.0-20.0 31732-4) Glucose Lvl (test 93 mg/dl 70-99 Adult refe rence range code = 2345-7) values reflec t the clinical guidel inesof the [place] Diabet es Association. Creatinine Lvl 0.80 mg/dl 0.50-1.40 (test code = 2160-0) Blood Urea 20 mg/dl 7-22 Nitrogen (test code = 3094-0) BUN/Creatinine 25 6-25 Ratio (test code = 3097-3) Total Protein 7.8 g/dl 6.4-8.4 (test code = 2885-2) Albumin Lvl (test 4.3 g/dl 3.5-5.0 code = 1751-7) Globulin (test 3.5 g/dl 2.7-4.2 code = 30016-5) A/G Ratio (test 1.2 0.7-1.6 code = 1759-0) Calcium Level 9.0 mg/dl 8.5-10.5 Total (test code = 72189-2) ALT (test code = 33 u/l 0-65 1743-4) AST (test code = 13 u/l 0-37 19093-0) Bili Total (test 0.5 mg/dl 0.2-1.3 code = 1975-2) Alk Phos (test 52 u/l 39-136 code = 1783-0) eGFR (test code = 129 The eGFR i s calculated 50448-6) {ML/MIN/1.7} using the CKD-E PI formula. In mos t young, healthyindividu als the eGFR will be >9 0 mL/min/1.73m2. The eGFR declines with a ge. AneGFR of 60-89 may be normal in some population s, particularly th e elderly, forwhom the CKD -EPI formula has not been extensively milly idated. Use of the eGFR isnot recommended in the following populations:Ind ividuals with unstable c reatinine concentrations, including patient s and those with seri ous co-morbid conditions.Asuncion ents with extremes in mus [place] mass or diet.The shanda a above are obtained fr om the National Kidney Disease Education Progr am(NKDEP) which zi lozano recommends that when the eGFR is used in patientswith ex tremes of body mass index for purposes of daniele g dosing, the eGFR should be multiplied by t he estimated BMI. [facility]] FOLATE, [id number] 10:43:01 Test Item Value Reference Range Interpretation Comments Folate Level (test code = 2284-8) 12.9 ng/ml >=3.0 [facility]] IRON, [id number] 10:43:01 Test Item Value Reference Range Interpretation Comments Iron (test code = 2498-4) 109 ug/dL 45-160 [facility]] LIPID [id number] 10:43:01 Test Item Value Reference Range Interpretation Comments Chol (test code = 2093-3) 193 mg/dl <=199 Trig; Above High Threshold (test 181 mg/dl <=149 code = 2571-8) HDL Cholesterol; Below Low 44 mg/dl >=61 Threshold (test code = 2085-9) LDL; Above High Threshold (test 113 mg/dl <=99 code = 45711-7) CHD Risk (test code = 81605-3) 4.39 4.00-7.30 VLDL (test code = VLDL) 36 [facility][QL] VITAMIN [id number] 10:43:01 Test Item Value Reference Range Interpretation Comments Vitamin B12 Level (test code = 327 pg/ml 254-1320 2-9) [facility]] TSH, 3RD GENERATION W/REFLEX TO [id number] 10:43:01 Test Item Value Reference Range Interpretation Comments TSH (test code = 75856-9) 2.490 {uIU/ml} 0.360-3.740 [facility]] CBC (INCLUDES DIFF/PLT)2018-12-20 10:43:01 Test Item Value Reference Range Interpretation Comments WBC (test code = 6690-2) 6.5 {K/CMM} 3.7-10.4 RBC (test code = 789-8) 4.93 {M/CMM} 4.70-6.10 Hgb (test code = 718-7) 15.0 g/dl 14.0-18.0 Hct (test code = 27545-5) 44.5 % 42.0-54.0 MCV (test code = 787-2) 90.3 fL 80.0-94.0 MCH (test code = 785-6) 30.3 pg 27.0-31.0 MCHC (test code = 786-4) 33.6 g/dl 32.0-36.0 RDW (test code = 788-0) 13.4 % 11.5-14.5 Platelet (test code = 63343-3) 234 {K/CMM} 133-450 Mean Platelet Volume (test code 8.8 fL 7.4-10.4 = 18041-3) [facility]] [id number] 10:43:01 Test Item Value Reference Range Interpretation Comments Segmented Neutrophils (test code 65.4 % 45.0-75.0 = 81713-8) Monocytes (test code = 40803-8) 7.3 % 2.0-12.0 Lymphocytes (test code = 69661-9) 26.0 % 20.0-40.0 Eosinophils (test code = 54984-8) 0.8 % 0.0-4.0 Basophils (test code = 706-2) 0.5 % 0.0-1.0 Segs-Bands # (test code = 4.2 {K/CMM} 1.5-8.1 93403-8) Lymphocytes # (test code = 1.7 {K/CMM} 1.0-5.5 06024-6) Monocytes # (test code = 71281-2) 0.5 {K/CMM} 0.0-0.8 Eosinophils # (test code = 0.1 {K/CMM} 0.0-0.5 42458-7) [facility]] PTH, INTACT (WITHOUT CALCIUM)2018-12-20 10:43:01 Test Item Value Reference Range Interpretation Comments Parathyroid Hormone Intact (test 62.1 pg/ml 18.4-80.1 code = 2731-8) [facility][QL] HEMOGLOBIN [id number] 10:43:01 Test Item Value Reference Range Interpretation Comments Hemoglobin A1c (test code = 4548-4) 5.0 % <=5.6 [facility]] VITAMIN D, 25-HYDROXY, LC/MS/[id number] 10:43:01 Test Item Value Reference Range Interpretation Comments Vitamin D, 25-OH, 9.0 ng/ml 30.0-100.0 Reference range is based Total (test code = on recomm endations in the Vitamin D, 25-OH, EndocrineS ociety Clinical Total) Practice Guidel ine (J Clin Endocrinol Iracx5284;96:19 11-1930) [facility][H] Vit [id number] 10:43:01 Test Item Value Reference Range Interpretation Comments Vitamin A 56.4 ug/dL 18.9-57.3 Reference inter vals for vitamin Level (test A determined fr om code = LabCorpinternal studies. Vitamin A Individuals wit h vitamin A less Level) than 20ug/dL ar e considered vitamin A defic ient and those withserum wong ntrations less than 10 ug/dL a re consideredsever joel deficient.This test was developed and i ts performance characteristics determined by [facility]. It has not been cleared orappro elia by the Food and Drug Administration. Performed At: [address] [id number] ra Rui TIDWELL Ph:[phone] [facility][H] Vitamin E [id number] 10:43:01 Test Item Value Reference Range Interpretation Comments Alpha-Tocoph 10.1 mg/L 5.9-19.4 This test was d eveloped and its eusebio (test performance code = characteristics determined by [facility]. It has not been cleared eusebio) orapproved by [facility] Food and Drug Administration. Gamma-Tocoph 2.5 mg/L 0.7-4.9 This test was d eveloped and its eusebio (test performance code = characteristics determined by [facility]. It has not been cleared eusebio) orapproved by [facility] Food and Drug Administration. Reference intervals for a lpha and gamma-tocophero ldetermined from National Health and Nutrition ExaminationSurv , 8804-9410. Individuals wit h alpha-tocophero l levelsless than 5.0 mg/L are co nsidered vitamin E deficient.Per formed At: [address] [id number] ra Rui TIDWELL Ph:[phone] [facility][QLH] VITAMIN B1, WHOLE [id number] 10:43:01 Test Item Value Reference Range Interpretation Comments Vitamin B1 85.3 nmol/L 66.5-200.0 This test was d eveloped and its Level (test performance code = characteristics determined by Vitamin B1 [facility]. It has not been Level) cleared orappro elia by the Food and Drug Administration. Performed At: [address] [id number] Fabian MD Ph:[phone] PR [id number] 19:05:00 Test Item Value Reference Range Interpretation Comments AGAP (test code = AGAP) 14.3 10.0-20.0 N [facility]ehhyqgHILTSJCIA5765-03-84 19:05:00 Test Item Value Reference Range Interpretation Comments CO2 (test code = CO2) 26 24-32 N [facility]neZmpypppZGDYSORYD3161-03-04 19:05:00 Test Item Value Reference Range Interpretation Comments Chloride Lvl (test code = Chloride Lvl) 106 95-109 N [facility]QqyjaqtXICLHKESQ3007-80-14 19:05:00 Test Item Value Reference Range Interpretation Comments Calcium Lvl (test code = Calcium Lvl) 8.8 8.5-10.5 N [facility] HospitalEwjygloDBIWNFKOS8394-10-35 19:05:00 Test Item Value Reference Range Interpretation Comments Potassium Lvl (test code = Potassium 3.3 3.5-5.1 L Lvl) [facility] HospitalYhzzdcdYMAAKORMR4210-38-47 19:05:00 Test Item Value Reference Range Interpretation Comments BUN (test code = BUN) 12 7-22 N [facility] HospitalNnjwuupZGNUGMCXD1266-25-51 19:05:00 Test Item Value Reference Range Interpretation Comments Glucose Lvl (test code = Glucose Lvl) 132 70-99 H [facility] HospitalRuoktbbEJXDMMPHS4173-71-32 19:05:00 Test Item Value Reference Range Interpretation Comments Sodium Lvl (test code = Sodium Lvl) 143 135-145 N [facility] HospitalLtgoglhEFRVPCLTF1643-25-05 19:05:00 Test Item Value Reference Range Interpretation Comments Creatinine Lvl (test code = Creatinine 0.9 0.5-1.4 N Lvl) [facility] HospitalThlykrvEUWVFVNKZ2219-97-43 19:05:00 Test Item Value Reference Range Interpretation Comments eGFR (test code = eGFR) 64 [facility] HospitalNubciwtYJKTONZNFO4924-32-39 19:05:00 Test Item Value Reference Range Interpretation Comments INR (test code = INR) 0.99 0.85-1.17 N [facility] HospitalJjghtfmSKMFEUDPFP1275-07-42 19:05:00 Test Item Value Reference Range Interpretation Comments PTT (test code = PTT) 19.6 s 22.9-35.8 L [facility] HospitalDahtwxfAQUSCXJKYH5143-25-51 19:05:00 Test Item Value Reference Range Interpretation Comments PT (test code = PT) 13.3 s 12.0-14.7 N [facility] HospitalIpztccqFLCMMPWMMJ3569-91-66 19:05:00 Test Item Value Reference Range Interpretation Comments RBC (test code = RBC) 4.33 4.70-6.10 L [facility] HospitalXoqkfsjKBOCZYWTRG9137-16-48 19:05:00 Test Item Value Reference Range Interpretation Comments WBC (test code = WBC) 9.9 4.5-13.5 N [facility] HospitalPwfwrkeSMZOAZHHXU1918-99-80 19:05:00 Test Item Value Reference Range Interpretation Comments Hct (test code = Hct) 38.2 42.0-54.0 L [facility] HospitalUughpkdUQDCRTVYIO1630-10-78 19:05:00 Test Item Value Reference Range Interpretation Comments Hgb (test code = Hgb) 13.4 14.0-18.0 L [facility] HospitalIqrqwmkNZDMYMCSHG1767-23-81 19:05:00 Test Item Value Reference Range Interpretation Comments RDW (test code = RDW) 11.7 11.5-14.5 N [facility] HospitalIksoylsQWPYZRQYWM9358-35-46 19:05:00 Test Item Value Reference Range Interpretation Comments MCHC (test code = MCHC) 35.0 32.0-36.0 N [facility] HospitalNnmtkczMZYNOZKHSD1747-99-99 19:05:00 Test Item Value Reference Range Interpretation Comments MCH (test code = MCH) 30.9 pg 27.0-31.0 N [facility] HospitalGsdrnayPTZTXLBPHI2055-40-09 19:05:00 Test Item Value Reference Range Interpretation Comments MCV (test code = MCV) 88.2 80.0-94.0 N [facility] HospitalXcxrohtSSPAXANIRB6231-51-51 19:05:00 Test Item Value Reference Range Interpretation Comments Platelet (test code = Platelet) 243 133-450 N [facility] HospitalWczvyqsSNUVWGXLQP9346-84-49 19:05:00 Test Item Value Reference Range Interpretation Comments MPV (test code = MPV) 8.3 7.4-10.4 N [facility] HospitalYdnoinnUJANWQPGVQ8537-43-60 19:05:00 Test Item Value Reference Range Interpretation Comments Basophils # (test code = Basophils #) 0.0 <=0.2 N [facility] HospitalCkwujbcFDEHPJVRQL5605-18-09 19:05:00 Test Item Value Reference Range Interpretation Comments Eosinophils (test code = Eosinophils) 0.5 <=4.0 N [facility] HospitalSrncaekRFJIWWVHBR5962-93-56 19:05:00 Test Item Value Reference Range Interpretation Comments Monocytes (test code = Monocytes) 6.1 2.0-12.0 N [facility] HospitalWhaseukFOUKSJSJLD8773-52-82 19:05:00 Test Item Value Reference Range Interpretation Comments Lymphocytes (test code = Lymphocytes) 22.0 20.0-40.0 N [facility] HospitalYlbmizcKLIKUDTAXS5767-00-76 19:05:00 Test Item Value Reference Range Interpretation Comments Segs (test code = Segs) 71.1 34.0-64.0 H [facility] HospitalGfgenluHHCNWOSCKQ6165-60-44 19:05:00 Test Item Value Reference Range Interpretation Comments Segs-Bands # (test code = Segs-Bands #) 7.1 1.5-8.7 N [facility] HospitalLekbszsMTTMNDQZES2668-46-76 19:05:00 Test Item Value Reference Range Interpretation Comments Basophils (test code = Basophils) 0.3 <=1.0 N [facility] HospitalGdnlxegHVZZZIMIMD7777-23-76 19:05:00 Test Item Value Reference Range Interpretation Comments Eosinophils # (test code = Eosinophils 0.0 <=0.5 N #) [facility] HospitalTbfwsyrXCIXXBROJE9675-33-52 19:05:00 Test Item Value Reference Range Interpretation Comments Monocytes # (test code = Monocytes #) 0.6 <=1.6 N [facility] HospitalCwvsllhASYZAEKSTK8334-13-65 19:05:00 Test Item Value Reference Range Interpretation Comments Lymphocytes # (test code = Lymphocytes 2.2 1.0-5.5 N #) [facility]
== END 2023-08-16 15:08 | disposition home or self-care (01) ==
LOC: ER 14:45
PROC: 0HQ1XZZ Repair Face Skin, External Approach (ICD-10-PCS; principal; 2023-08-16)
DX: S01.411A Laceration without foreign body of right cheek and temporomandibular area, initial encounter (principal); Z23 Encounter for immunization
CPT/HCPCS: 90471; 99284